=== PATIENT | male | born 1945 | race Hispanic/Latino ===

== ENCOUNTER 2022-03-14 06:54 | Inpatient (IN) | payer MEDICARE, OTHER ==
[2022-03-13 12:33] LABS: BASOPHILS % 0.7 % (0.0-1.0); EOSINOPHILS # (AUTO) 0.1 (0.0-0.4); EOSINOPHILS % 2.3 % (0.0-6.0); HEMATOCRIT 45.5 % (38.2-49.6); HEMOGLOBIN 14.6 g/dL (14.0-18.0); LYMPHOCYTES % 35.3 % (18.0-39.1); MEAN CORPUSCULAR HEMOGLOBIN 28.3 pg (28-32); MEAN CORPUSCULAR HGB CONC 32.1 g/dL (31-35); MEAN CORPUSCULAR VOLUME 88.2 fL (81-99); MONOCYTES # (AUTO) 0.5 (0.2-0.8); MONOCYTES % 8.2 % (4.4-11.3); NEUTROPHILS # (AUTO) 3.1 (2.1-6.9); NEUTROPHILS % 53.2 % (38.7-80.0); PLATELET COUNT 208 x10e3/uL (140-360); RED BLOOD COUNT 5.16 x10e6/uL (4.3-5.7); RED CELL DISTRIBUTION WIDTH 14.6 % (11.7-14.4)
[~2022-03-14] VITALS: Ht 167.6 cm; Wt 61.2 kg
[2022-03-14] MEDS ORDERED: PAIN MEDICATION PO (07:00)
[2022-03-14] MEDS ORDERED: HYDROCODONE/APAP 5MG-325MG TAB PO PRN (10:00)
[2022-03-14] MEDS ORDERED: ONDANSETRON HCL INJ 2MG/ML 2ML 2 MG/ML VIAL IV PRN (10:00)
[2022-03-14] MEDS ORDERED: FENTANYL CITRATE/PF 100MCG/2 ML INJ ONE ×2 (10:44→13:21)
[2022-03-14 12:05] VITALS: BP 145/97
[2022-03-14 12:15] VITALS: BP 145/97
[2022-03-14] MEDS ORDERED: MIDAZOLAM HCL 2 MG/2 ML VIAL ONE (13:21)
[2022-03-14] MEDS: SODIUM CHLORIDE 0.9% 1000ML 1,000 ML IV SCH (13:22)
[2022-03-14] MEDS: Vancomycin IV 1 GM in SODIUM CHLORIDE 0.9% 250ML 250 ML IV SCH (13:22)
[2022-03-14 14:36] LABS: CALCIUM 8.2 mg/dL (8.4-10.2); CREATININE, SERUM 0.93 mg/dL (0.72-1.25)
[2022-03-14] MEDS ORDERED: ONDANSETRON HCL INJ 2MG/ML 2ML 2 MG/ML VIAL ONE (16:25)
[2022-03-14] MEDS ORDERED: PROPOFOL IV EMULSION 10 MG/ML 20 ML VIAL ONE (16:25)
[2022-03-14] MEDS ORDERED: SEVOFLURANE INHAL SOLN 250 ML PEN BTL ONE (16:25)
[2022-03-14] MEDS ORDERED: POVIDONE IODINE 0.05% 0.05 % ML PO ONE (16:25)
[2022-03-14] MEDS ORDERED: LIDOCAINE HCL 2% LOCAL INJ 5 ML SDV VIAL INJ ONE (16:25)
[2022-03-14 17:03] VITALS: BP 140/70
[2022-03-15] VITALS (10 sets, daily range): BP systolic 121–181; BP diastolic 56–83
[2022-03-15] MEDS: SODIUM CHLORIDE 0.9% 1000ML 1,000 ML IV SCH (02:59)
[2022-03-15 06:09] LABS: BASOPHILS % 0.3 % (0.0-1.0); EOSINOPHILS % 0.2 % (0.0-6.0); HEMATOCRIT 42.6 % (38.2-49.6); HEMOGLOBIN 13.6 g/dL (14.0-18.0); LYMPHOCYTES # (AUTO) 0.8 (1.0-3.2); MEAN CORPUSCULAR HEMOGLOBIN 27.4 pg (28-32); MEAN CORPUSCULAR HGB CONC 31.9 g/dL (31-35); MEAN CORPUSCULAR VOLUME 85.9 fL (81-99); MONOCYTES # (AUTO) 0.7 (0.2-0.8); MONOCYTES % 6.9 % (4.4-11.3); NEUTROPHILS # (AUTO) 8.6 (2.1-6.9); PLATELET COUNT 143 x10e3/uL (140-360); RED BLOOD COUNT 4.96 x10e6/uL (4.3-5.7); RED CELL DISTRIBUTION WIDTH 14.2 % (11.7-14.4)
[2022-03-15 06:52] LABS: ANION GAP 12.5 mmol/L (8-16); CALCIUM 7.9 mg/dL (8.4-10.2); CREATININE, SERUM 1.07 mg/dL (0.72-1.25); POTASSIUM 3.5 mmol/L (3.5-5.1)
[2022-03-15] MEDS: CEFTRIAXONE 2 GM in SODIUM CHLORIDE 0.9% 100 ML IV SCH ×2 (10:00→18:34)
[2022-03-15] MEDS ORDERED: ULTRAM 50MG50 MG PO (10:41)
[2022-03-15] MEDS ORDERED: ROCEPHIN IV (10:41)
[2022-03-15] MEDS: TAMSULOSIN HCL 0.4 MG CAP PO SCH (11:00)
[2022-03-15] MEDS: Vancomycin IV 1 GM in SODIUM CHLORIDE 0.9% 250ML 250 ML IV SCH (13:55)
[2022-03-15] MEDS ORDERED: DOCUSATE SODIUM 100 MG CAP PO PRN (20:15)
[2022-03-15] MEDS: BISACODYL 5 MG TAB EC PO PRN (20:48)
[2022-03-16] VITALS: BP 157/70
[2022-03-16 04:00] VITALS: BP 166/68
[2022-03-16 08:04] VITALS: BP 134/83
[2022-03-16 08:23] VITALS: BP 134/83
[2022-03-16] MEDS: TAMSULOSIN HCL 0.4 MG CAP PO SCH (10:24)
[2022-03-16] MEDS: BISACODYL 5 MG TAB EC PO PRN (10:27)
[2022-03-16] MEDS ORDERED: ACETAMINOPHEN 325 MG TAB PO PRN (12:15)
[2022-03-16 12:26] VITALS: BP 156/79
[2022-03-16] MEDS ORDERED: HYDRALAZINE HCL 20 MG/ML VIAL IV PRN (13:30)
[2022-03-16 16:40] VITALS: BP 145/74
[2022-03-16] MEDS ORDERED: ONDANSETRON HCL 4 MG ORAL DISINTEGRATING TAB PO PRN (17:00)
== END 2022-03-16 17:35 | disposition home health service (06) | DRG 501 ==
LOC: OR 06:54 → PACU V 10:12 → MED/SURG3 12:03 → OBSVTOIN 03-16 15:21
PROVIDERS: ADMIT Specialist; ATTEND Specialist
PROC: 0KD70ZZ Extraction of Right Upper Arm Muscle, Open Approach (ICD-10-PCS; principal; 2022-03-14 08:43)
PROC: 02HV33Z Insertion of Infusion Device into Superior Vena Cava, Percutaneous Approach (ICD-10-PCS; 2022-03-15)
DX: M71.021 Abscess of bursa, right elbow (principal); L02.413 Cutaneous abscess of right upper limb; I10 Essential (primary) hypertension; M19.021 Primary osteoarthritis, right elbow; R33.9 Retention of urine, unspecified; E83.51 Hypocalcemia; I95.9 Hypotension, unspecified; K59.00 Constipation, unspecified; R73.9 Hyperglycemia, unspecified; N28.9 Disorder of kidney and ureter, unspecified; Z20.822 Contact with and (suspected) exposure to COVID-19
CPT/HCPCS: 36415; 36569; 71045; 71046; 74470; 76770; 80048; 82948; 83036; 85025; 87071; 87075; 87205; 88304; 93005; 94799; 99251; C1713; G0378; J0690; J0696; J2001; J2250; J2405; J3010; J3370; J7030; J7050; U0002

== ENCOUNTER 2022-03-21 19:28 | Emergency (ER) | payer MEDICARE, OTHER ==
[~2022-03-21] VITALS: Ht 167.6 cm; Wt 70.3 kg
[~2022-03-21 19:28] MED LIST: PAIN MEDICATION PO; ROCEPHIN IV; ULTRAM 50MG50 MG PO
[2022-03-21] MEDS ORDERED: METHOCARBAMOL750 MG PO (21:31)
[2022-03-21] MEDS ORDERED: LISINOPRIL-HCT1 EAC2 PO (21:31)
[2022-03-21] MEDS ORDERED: IBUPROFEN800 MG PO (21:31)
[2022-03-21] MEDS ORDERED: FLOMAX0.4 MG PO (21:31)
[2022-03-21] MEDS ORDERED: CEFTRIAXONE 1 GM VIAL IV STA (22:50)
[2022-03-21 23:14] LABS: BASOPHILS % 0.8 % (0.0-1.0); EOSINOPHILS # (AUTO) 0.2 (0.0-0.4); EOSINOPHILS % 4.8 % (0.0-6.0); HEMATOCRIT 39.4 % (38.2-49.6); LYMPHOCYTES # (AUTO) 1.5 (1.0-3.2); LYMPHOCYTES % 30.8 % (18.0-39.1); MEAN CORPUSCULAR VOLUME 84.7 fL (81-99); MONOCYTES # (AUTO) 0.5 (0.2-0.8); MONOCYTES % 9.7 % (4.4-11.3); NEUTROPHILS # (AUTO) 2.7 (2.1-6.9); NEUTROPHILS % 53.5 % (38.7-80.0); PLATELET COUNT 177 x10e3/uL (140-360); RED BLOOD COUNT 4.65 x10e6/uL (4.3-5.7); RED CELL DISTRIBUTION WIDTH 14.3 % (11.7-14.4)
[2022-03-21 23:30] LABS: ANION GAP 14.1 mmol/L (8-16); CALCIUM 8.1 mg/dL (8.4-10.2); CREATININE, SERUM 0.8 mg/dL (0.72-1.25); POTASSIUM 4.1 mmol/L (3.5-5.1)
[2022-03-22 02:24] VITALS: BP 160/82
== END 2022-03-22 01:30 | disposition home or self-care (01) ==
LOC: ER 19:32
DX: L08.89 Other specified local infections of the skin and subcutaneous tissue (principal)
CPT/HCPCS: 36415; 36569; 71045; 80048; 85025; 99284

== ENCOUNTER 2022-04-02 11:44 | Emergency (ER) | payer MEDICARE, OTHER ==
[~2022-04-02] VITALS: Ht 167.6 cm; Wt 70.3 kg
[~2022-04-02 11:44] MED LIST changes: +FLOMAX0.4 MG PO; +IBUPROFEN800 MG PO; +LISINOPRIL-HCT1 EAC2 PO; +METHOCARBAMOL750 MG PO
[2022-04-02] MEDS ORDERED: FLOMAX0.4 MG PO (12:34)
[2022-04-02 13:02] VITALS: BP 134/78
== END 2022-04-02 13:03 | disposition home or self-care (01) ==
LOC: ER 12:07
DX: R33.9 Retention of urine, unspecified (principal); R30.0 Dysuria; I10 Essential (primary) hypertension
CPT/HCPCS: 99282

== ENCOUNTER 2022-12-03 17:48 | Emergency (ER) | payer MEDICARE, OTHER ==
[~2022-12-03] VITALS: Ht 167.6 cm; Wt 70.3 kg
[~2022-12-03 17:48] MED LIST changes: -BUPIVACAINE 0.5%/EPI 30 ML SDV INJ ONE; +FENTANYL CITRATE/PF 100MCG/2 ML INJ ONE; -HYDROCODONE/APAP 7.5MG-325MG 1 EA TAB ONE; -LIDOCAINE HCL 1% LOCAL INJ 20 ML VIAL ONE; +MIDAZOLAM HCL 2 MG/2 ML VIAL ONE; -SUGAMMADEX SODIUM 200 MG/2 ML VIAL IV ONE
[2022-12-03] MEDS ORDERED: FLOMAX0.4 MG PO (18:24)
== END 2022-12-03 18:45 | disposition home or self-care (01) ==
LOC: ER 18:15
DX: R33.9 Retention of urine, unspecified (principal); I10 Essential (primary) hypertension
CPT/HCPCS: 51702; 99283; J2250; J3010; 51700

== ENCOUNTER → 2022-12-03 | Day surgery (SDC) | payer MEDICARE, OTHER ==
[2022-11-29 11:56] LABS: BASOPHILS % 0.1 % (0.0-1.0); EOSINOPHILS # (AUTO) 1.2 (0.0-0.4); HEMATOCRIT 44.7 % (38.2-49.6); HEMOGLOBIN 13.7 g/dL (14.0-18.0); LYMPHOCYTES # (AUTO) 2.6 (1.0-3.2); LYMPHOCYTES % 37.1 % (18.0-39.1); MEAN CORPUSCULAR HEMOGLOBIN 27.9 pg (28-32); MEAN CORPUSCULAR HGB CONC 30.6 g/dL (31-35); MONOCYTES # (AUTO) 0.5 (0.2-0.8); MONOCYTES % 6.6 % (4.4-11.3); NEUTROPHILS # (AUTO) 2.7 (2.1-6.9); NEUTROPHILS % 38.6 % (38.7-80.0); PLATELET COUNT 203 x10e3/uL (140-360); RED BLOOD COUNT 4.91 x10e6/uL (4.3-5.7); RED CELL DISTRIBUTION WIDTH 13.1 % (11.7-14.4)
[2022-11-29 12:15] LABS: ANION GAP 16.1 mmol/L (8-16); CALCIUM 9.2 mg/dL (8.4-10.2); CREATININE, SERUM 0.89 mg/dL (0.72-1.25); POTASSIUM 4.1 mmol/L (3.5-5.1)
[~2022-12-03] MED LIST changes: +BUPIVACAINE 0.5%/EPI 30 ML SDV INJ ONE; +HYDROCODONE/APAP 7.5MG-325MG 1 EA TAB ONE; +IBUPROFEN200 MG PO; +LIDOCAINE HCL 1% LOCAL INJ 20 ML VIAL ONE; +OMEGA-31000 MG PO; +SUGAMMADEX SODIUM 200 MG/2 ML VIAL IV ONE
[2022-12-03 12:10] VITALS: BP 145/76
== END | disposition home or self-care (01) ==
LOC: OR 06:47
PROVIDERS: ATTEND Surgery
DX: K40.30 Unilateral inguinal hernia, with obstruction, without gangrene, not specified as recurrent (principal); I10 Essential (primary) hypertension; N40.0 Benign prostatic hyperplasia without lower urinary tract symptoms; R05.9 Cough, unspecified; Z01.810 Encounter for preprocedural cardiovascular examination; Z01.812 Encounter for preprocedural laboratory examination; Z20.822 Contact with and (suspected) exposure to COVID-19; Z79.899 Other long term (current) drug therapy
CPT/HCPCS: 0223U; 36415; 49507; 71046; 80048; 85025; 93005; C1781; J2001